=== PATIENT | male | born 1975 | race Caucasian/White ===

== ENCOUNTER → 2017-05-21 22:49 | Outpatient (CLI) | payer OTHER, SELFPAY | PROVIDERS: Family Provider Family Medicine; PCP Family Medicine; Visit Provider Nurse Practitioner Acute Care | DX: G47.33 Obstructive sleep apnea (adult) (pediatric) (principal) | CPT/HCPCS: 95811 ==

== ENCOUNTER → 2018-09-03 10:31 | Outpatient (CLI) | payer OTHER, SELFPAY ==
[2017-07-19 09:23] VITALS: BMI 44.9
--- NOTE | 2018-09-03 10:34 | RAD_ITS ---
STUDY: X-RAY - RIGHT ANKLE REASON FOR EXAM: Male, 43 years old. Ankle pain TECHNIQUE: 3 view(s) of the ankle. COMPARISON: None. FINDINGS: Normal visualized distal tibia and fibula. Normal medial and lateral malleoli. Normal tibiotalar articulation and ankle mortise. Normal visualized talus and calcaneus. The visualized subtalar, talonavicular, calcaneocuboid and tarsal articulations are normal. Bimalleolar soft tissue swelling. RAD/Ankle min 3 Views IMPRESSION: Bimalleolar sprain. No evidence for acute fracture. Electronically Signed: Manpreet Spain MD at 21:14 EDT , Service support ,
== END ==
PROVIDERS: Family Provider Family Medicine; PCP Family Medicine; Referring Provider Chiropractor; Visit Provider Chiropractor
DX: S93.401A Sprain of unspecified ligament of right ankle, initial encounter (principal)
CPT/HCPCS: 73610

== ENCOUNTER → 2018-09-03 12:57 | Outpatient (CLI) | payer OTHER, SELFPAY ==
[2017-07-19 09:23] VITALS: BMI 44.9
[2018-09-03 14:01] LABS: Erythrocyte Sedimentation Rate 2 mm/hr (0-15)
[2018-09-03 14:13] LABS: Vitamin D,25 Hydroxy 17.6 ng/mL (29.95-100.01)
[2018-09-03 14:15] LABS: ALB/GLOB Ratio 1.3 RATIO (0.9-2.4); AST(SGOT) 49 U/L (15-37); Alanine Aminotransfer ALT/SGPT 101 U/L (16-61); Albumin, Serum 4.4 g/dL (3.2-5.0); Alkaline Phosphatase 97 U/L (45-117); Anion Gap 7 (5-15); BUN 10 mg/dL (7-18); Calcium,Total 8.8 mg/dL (8.5-10.1); Chloride 100 mmol/L (98-107); Creatinine, Serum 1.11 mg/dL (0.70-1.30); EST Glomerular Filtration Rate 77 mL/min (>60); Est Glom Filt Rate - Afr Amer 93 mL/min (>60); Globulin 3.3 g/dL (2.2-4.2); Glucose 253 mg/dL (74-106); Magnesium 2.1 mg/dL (1.6-2.6); Potassium 4.4 mmol/L (3.5-5.1); Protein, Total 7.7 g/dL (6.4-8.2); Sodium Level 138 mmol/L (136-145); Thyroid Stim Hormone (TSH) 2.08 uIU/mL (0.358-3.74)
[2018-09-03 14:23] LABS: Mean Corpuscular Volume 78.8 fL (80-94); Mean Platelet Vol. 10.4 fl (6.2-12.0); Platelet Count 197 K/mm3 (150-450); RBC Distribution Width CV 14.1 % (11.6-14.6); RBC Distribution Width SD 39.6 fl (35.1-43.9); Red Blood Count 5.71 M/mm3 (4.6-6.2); White Blood Count 9.9 K/mm3 (4.4-11.0)
[2018-09-03 14:24] LABS: Mean Corp Hgb Conc 35.5 g/gl (32-36)
[2018-09-03 14:25] LABS: Scan Indicated on CBC? Y/N NO
== END ==
PROVIDERS: Family Provider Family Medicine; PCP Family Medicine; Referring Provider Family Medicine; Visit Provider Family Medicine
DX: R25.3 Fasciculation (principal)
CPT/HCPCS: 36415; 80053; 82306; 83735; 84443; 85027; 85652

== ENCOUNTER → 2019-04-14 10:20 | Outpatient (CLI) | payer OTHER, SELFPAY ==
--- NOTE | 2019-04-14 10:25 | MRI_ITS ---
STUDY: MRI RIGHT ANKLE WITHOUT CONTRAST REASON FOR EXAM: Lateral ankle pain, rolled ankle in June. TECHNIQUE: Standardized fat and water weighted pulse sequences were obtained in all 3 orthogonal planes. COMPARISON: Radiographs 09/03/2018. FINDINGS: There is edema in the subcutis adipose space. Normal posterior tibialis tendon. Normal flexor digitorum longus tendon. Normal flexor hallucis longus tendon. There is a longitudinal split of the perimalleolar peroneus brevis tendon (T1 axial images 18-25) and submalleolar peroneus longus tendinosis (T2 axial images 22-25). Normal tibialis anterior tendon. Normal extensor hallucis longus tendon. Normal extensor digitorum longus tendons. Normal Achilles tendon and teno-osseous insertion. Normal plantar fascia. Normal plantar calcaneal tubercles. Normal intrinsic muscles of the rearfoot. Normal distal tibiofibular syndesmotic ligamentous complex. Normal lateral ligamentous complex. Normal subtalar ligaments and sinus tarsi. There is a mild chronic sprain of the deltoid ligament (T2 coronal image 16). Normal plantar calcaneonavicular (spring) ligament. Normal tibiotalar articulation. Normal talar dome. Normal subtalar articulations. Normal talonavicular articulation. Normal calcaneocuboid articulation. Normal navicular-cuneiform articulations. 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 Mild chronic sprain of the deltoid ligament. Electronically Signed: Omer Monreal MD at 13:05 EST Tel , Service support ,
== END ==
PROVIDERS: Family Provider Family Medicine; PCP Family Medicine; Referring Provider Chiropractor; Visit Provider Chiropractor
DX: M65.871 Other synovitis and tenosynovitis, right ankle and foot (principal)
CPT/HCPCS: 73721

== ENCOUNTER 2020-01-04 08:08 | Emergency (ER) | payer OTHER, SELFPAY ==
[2019-04-21 15:58] VITALS: BMI 44.9
[2020-01-04 08:08] VITALS: BP 149/98; PULSE 64; RESP 16; TEMP 36.6; O2SAT 99; BMI 40.0
--- NOTE | 2020-01-04 08:14 | EKG12_ITS ---
Test Reason : REPEAT Blood Pressure : / mmHG Vent. Rate : 057 BPM Atrial Rate : 057 BPM P-R Int : 160 ms QRS Dur : 098 ms QT Int : 414 ms P-R-T Axes : 018 -08 023 degrees QTc Int : 402 ms Sinus bradycardia Inferior infarct , age undetermined Abnormal ECG Confirmed by RIVER VALADEZ, ESTEFANIA ([id number]), assistant production editor WALLY BARTON ([id number]) on 01/07/2020 11:25:37 AM Referred By: JESS Confirmed By:ESTEFANIA HOLMAN MD
--- NOTE | 2020-01-04 08:14 | RAD_ITS ---
STUDY: X-RAY CHEST REASON FOR EXAM: Male, 44 years old. Acute onset of chest tightness. TECHNIQUE: AP upright portable view. COMPARISON: None. FINDINGS: Mild pulmonary hypoinflation. The lungs are clear. There is no demonstrated pleural abnormality. Normal size heart. Normal mediastinum and dao. Normal visualized pulmonary arteries. Normal visualized aortic arch and descending thoracic aorta. Normal visualized thoracic spine. Normal visualized ribs, clavicles, and shoulders. There is no demonstrated abnormality of the visualized soft tissue structures of the upper abdomen. RAD/Chest 1 View (Portable) IMPRESSION: Normal x-ray examination of the chest. Electronically Signed: Alexander Sands MD at 8:51 EDT , Service support ,
[2020-01-04] MEDS: Aspirin 81 MG TAB.CHEW 324 MG PO (08:24)
[2020-01-04 08:39] LABS: Absolute Lymphocyte Count 1.84 X10^3/uL (0.83-4.51); Basophil# 0.03 X10^3/uL; Basophil% 0.3 % (0-1); Eosinophil# 0.12 X10^3/uL; Eosinophils% 1.4 % (0-5); Hematocrit 47.4 % (40-54); Hemoglobin 16.7 g/dL (13.0-16.5); Lymphocyte # 1.84 X10^3/ul (4.0); Lymphocyte % 21.3 % (19-41); Mean Corp Hgb Conc 35.2 g/dL (32-36); Mean Corpuscular Hgb 28.4 pg (27.0-32.0); Mean Corpuscular Volume 80.6 fL (80-94); Mean Platelet Vol. 9.9 fl (6.2-12.0); Monocyte# 0.55 X10^3/uL; Monocyte% 6.4 % (0-10); NRBC Flagged by Analyzer 0 % (0-5); Neutrophil # 5.98 X10^3/uL (2.7-7.7); Neutrophil % 69.2 % (47-70); Platelet Count 154 K/mm3 (150-450); RBC Distribution Width CV 13.5 % (11.6-14.6); RBC Distribution Width SD 38.5 fl (35.1-43.9); Red Blood Count 5.88 M/mm3 (4.6-6.2); White Blood Count 8.6 K/mm3 (4.4-11.0)
--- NOTE | 2020-01-04 08:46 | ED.VIS.GEN ---
History of Present Illness Chief Complaint: Chest Pain Informant: Patient Onset: Today Maximum Severity: Mild Narrative: Complains of bilateral shoulder tingling and right facial tingling chest discomfort occurred today around 7 AM when he woke he went to bed feeling fine. He has no fever cough chest pain is really nonspecific it is more of a tingling sensation to the upper chest, he has no orthopnea PND no fever no signs of coronavirus exposure no symptoms. No abdominal pain, the tingling to the shoulders and the right face is improved without specific therapy. He has no history of [place] PE or DVT he works and can exert himself and never has any type of chest pain or tingling symptoms. His review of systems are entirely unremarkable when I asked him where he is tingling he basically takes his hand and draws it to the right and left upper pectoral areas and to the right side of his cheek the symptoms are not reproducible Past Medical History - Allergies and Home Meds Allergies/Adverse Reactions: Allergies escitalopram [From Lexapro] Adverse Reaction (Mild, Verified 01/04/20 08:10) Other - delayed ejaculatory response Primary Care Physician: Elio Edouard MD [Primary Care Provider] - Past Medical History: - - Includes as above no history of [place] PE or DVT Surgical History: cholecystectomy, tonsillectomy Smoking Status: Unknown if ever smoked - Family History Maternal Family History: Reports: No pertinent history Paternal Family History: Reports: No pertinent history Sibling Family History: Reports: No pertinent history Offspring Family History: Reports: No pertinent history Review of Systems General: Denies: Chills, Fever, Sweats Eyes: Denies: Visual changes - bilaterally, Diplopia ENT: Denies: Rhinorrhea, Sore throat Cardiovascular: Reports: Chest pain, - - Numbness or tingling sensation to the upper chest. Denies: Palpitations Respiratory: Denies: Dyspnea, Cough, Dyspnea on exertion Gastrointestinal: Denies: Abdominal pain, Nausea, Vomiting, Diarrhea, Melena, Hematochezia Genitourinary: Denies: Dysuria, Hematuria, Frequency Musculoskeletal: Denies: Back pain, Extremity Pain Skin: Denies: Rash, Wounds Neurological: Denies: Headache, Weakness, Numbness Physical Exam Vital Signs/Narrative: Vital Signs Temp Pulse Resp BP Pulse Ox 01/04/20 08:08 97.8 F 64 16 149/98 H 99 General: Well nourished, Well developed, No Acute Distress Head: Normocephalic, Atraumatic Eyes: Perrl, EOMI ENT: Moist mucous membranes, No rhinorrhea Neck: Supple, Nontender Cardiovascular: Regular rate, Regular rhythm, No murmurs Respiratory: No distress, CTA bilaterally, Chest nontender Abdomen: Soft, Nontender, Nondistended, Normal bowel sounds Back: Nontender, Normal Inspection Extremities: Nontender, No edema Skin: Normal color, No rash Neurological: Alert, Oriented x3, Cranial nerves II-XII grossly intact, Normal Strength, Normal Sensation Psychological: Normal affect, Normal Mood Diagnostic/Tx/Re-eval - Medical Decision Making The patient is a large gentleman his physical exam is unremarkable his vital signs are normal the chest head neck neurologic exam extremity exam unremarkable the exact etiology of this numbness and tingling sensation is unclear it does not involve his hands rather the shoulders upper chest and the right cheek he has full range of motion of the head his HEENT exam is unremarkable his carotid pulses are normal his extremity pulses and sensation vascular exam unremarkable backs unremarkable His EKG shows a sinus rhythm rate 60 no acute injury given all the above ED screening evaluation Patient's ED screening evaluations labs and chest x-ray reports are all generally unremarkable see those reports, In reevaluation is resting comfortably asymptomatic discussed the differential to include life-threatening etiologies he understands discussed inpatient versus outpatient management he does not wish to be admitted preferring outpatient management and wanted to be discharged home, he did agree to stay in the emergency department for repeat troponin EKG, these additional studies were unremarkable, during his period of observation in the ED he remained asymptomatic He understands the need to follow-up with his outpatient providers understands the potential for life-threatening etiology of the above he will take 2 baby aspirin a day and return for change in symptoms Home stable declined admission Impression final chest discomfort and upper body numbness resolved etiology unclear ED Disposition - Plan for ED Patient: Diagnosis: Chest pain Instructions: ED Chest Pain Atypical Unkn Cause Referrals: Elio Edouard MD [Primary Care Provider] - Additional Instructions: No exertional activity, take 2 baby aspirin a day until you follow-up, you must see your outpatient providers for further management return for any change in symptoms
[2020-01-04 08:53] LABS: Anion Gap 2 (5-15); BUN 10 mg/dL (7-18); BUN/Creat Ratio 11.2 RATIO (10-20); Calcium,Total 8.9 mg/dL (8.5-10.1); Chloride 106 mmol/L (98-107); Creatinine, Serum 0.89 mg/dL (0.70-1.30); EST Glomerular Filtration Rate 98 mL/min (>60); Est Glom Filt Rate - Afr Amer 119 mL/min (>60); Estimated Creatinine Clearance 116.25 ml/min; Glucose 265 mg/dL (74-106); Potassium 4.1 mmol/L (3.5-5.1); Sodium Level 139 mmol/L (136-145)
[2020-01-04 09:08] VITALS: BP 138/79; PULSE 68; RESP 16; O2SAT 100
--- NOTE | 2020-01-04 09:18 | EKG12_ITS ---
Test Reason : CP Blood Pressure : / mmHG Vent. Rate : 061 BPM Atrial Rate : 061 BPM P-R Int : 154 ms QRS Dur : 094 ms QT Int : 398 ms P-R-T Axes : 013 -06 021 degrees QTc Int : 400 ms Normal sinus rhythm Inferior infarct , age undetermined Abnormal ECG Confirmed by RIVER VALADEZ, ESTEFANIA ([id number]), subeditor WALLY BARTON ([id number]) on 01/07/2020 11:25:22 AM Referred By: Confirmed By:ESTEFANIA HOLMAN MD
[2020-01-04 10:30] VITALS: BP 137/74; PULSE 70; RESP 16
== END 2020-01-04 10:31 | disposition home or self-care (01) ==
PROVIDERS: Emergency Provider Emergency Medicine; PCP Family Medicine
DX: R07.9 Chest pain, unspecified (principal); R20.0 Anesthesia of skin; Z90.49 Acquired absence of other specified parts of digestive tract
CPT/HCPCS: 71045; 80048; 84484; 85025; 93005; 96374; 96375; 99285; A4216

== ENCOUNTER → 2022-11-20 | Outpatient (CLI) | payer OTHER, SELFPAY ==
[2022-11-20 18:22] LABS: Anion Gap 5 (5-15); BUN 12 mg/dL (7-18); BUN/Creat Ratio 12.2 RATIO (10-20); Calcium,Total 8.9 mg/dL (8.5-10.1); Chloride 102 mmol/L (98-107); Creatinine, Serum 0.98 mg/dL (0.70-1.30); EST Glomerular Filtration Rate 87 mL/min (>60); Est Glom Filt Rate - Afr Amer 105 mL/min (>60); Glucose 345 mg/dL (74-106); Potassium 3.9 mmol/L (3.5-5.1); Sodium Level 136 mmol/L (136-145)
== END | disposition home or self-care (01) ==
PROVIDERS: PCP Family Medicine; Visit Provider Nurse Practitioner Family
DX: I10 Essential (primary) hypertension (principal)
CPT/HCPCS: 36415; 80048

== ENCOUNTER → 2023-01-17 | Outpatient (CLI) | payer OTHER, SELFPAY ==
[2023-01-17 13:03] LABS: Hemoglobin A1c 9.2 % (3.8-5.6)
[2023-01-17 13:04] LABS: Anion Gap 5 (5-15); BUN 21 mg/dL (7-18); BUN/Creat Ratio 22.3 RATIO (10-20); Calcium,Total 9.5 mg/dL (8.5-10.1); Chloride 104 mmol/L (98-107); Cholesterol 157 mg/dL (200); Creatinine, Serum 0.94 mg/dL (0.70-1.30); EST Glomerular Filtration Rate 91 mL/min (>60); Est Glom Filt Rate - Afr Amer 110 mL/min (>60); Glucose 308 mg/dL (74-106); High Density Lipoprotein 37 mg/dL; Potassium 5.1 mmol/L (3.5-5.1); Sodium Level 134 mmol/L (136-145); Triglycerides 111 mg/dL; Very Low Density Lipoprotein 22 mg/dL (5-40)
[2023-01-17 13:25] LABS: Microalbumin,Random Urine 31.1 mg/L (NO RANGE EST.); Microalbumin:Creatinine Ratio 45.3 mg/g CRE (<30 mg/g CRE)
== END | disposition home or self-care (01) ==
LOC: MFPLAB 09:52
PROVIDERS: PCP Family Medicine; Visit Provider Family Medicine
DX: E11.69 Type 2 diabetes mellitus with other specified complication (principal); E66.01 Morbid (severe) obesity due to excess calories
CPT/HCPCS: 36415; 80048; 80061; 82043; 82570; 83036

== ENCOUNTER → 2023-03-16 | Outpatient (CLI) | payer OTHER, SELFPAY ==
[2023-03-16 10:29] LABS: Anion Gap 3 (5-15); BUN 24 mg/dL (7-18); BUN/Creat Ratio 26.1 RATIO (10-20); Calcium,Total 8.7 mg/dL (8.5-10.1); Chloride 104 mmol/L (98-107); Creatinine, Serum 0.92 mg/dL (0.70-1.30); EST Glomerular Filtration Rate 94 mL/min (>60); Est Glom Filt Rate - Afr Amer 113 mL/min (>60); Glucose 231 mg/dL (74-106); PSA,Total - Annual Screen 1.02 ng/mL (0.00-4.00); Potassium 4.2 mmol/L (3.5-5.1); Sodium Level 134 mmol/L (136-145)
== END | disposition home or self-care (01) ==
LOC: MFPLAB 08:25
PROVIDERS: PCP Family Medicine; Visit Provider Family Medicine
DX: Z00.00 Encounter for general adult medical examination without abnormal findings (principal); E11.69 Type 2 diabetes mellitus with other specified complication
CPT/HCPCS: 36415; 80048; 84153; G0103

== ENCOUNTER → 2024-06-05 | Outpatient (CLI) | payer OTHER, SELFPAY ==
[2024-06-05 11:13] LABS: ALB/GLOB Ratio 1.1 RATIO (0.9-2.4); AST(SGOT) 31 U/L (15-37); Alanine Aminotransfer ALT/SGPT 47 U/L (16-61); Albumin, Serum 3.9 g/dL (3.2-5.0); Alkaline Phosphatase 70 U/L (45-117); Anion Gap 8 (5-15); BUN 19 mg/dL (7-18); BUN/Creat Ratio 20.3 RATIO (10-20); Chloride 104 mmol/L (98-107); Cholesterol 151 mg/dL (200); Creatinine, Serum 0.93 mg/dL (0.70-1.30); EST Glomerular Filtration Rate 91 mL/min (>60); Est Glom Filt Rate - Afr Amer 111 mL/min (>60); Globulin 3.5 g/dL (2.2-4.2); Glucose 193 mg/dL (74-106); High Density Lipoprotein 33 mg/dL; Protein, Total 7.4 g/dL (6.4-8.2); Sodium Level 136 mmol/L (136-145); Triglycerides 118 mg/dL; Very Low Density Lipoprotein 24 mg/dL (5-40)
[2024-06-05 11:22] LABS: Protein, Urine (Random) 11.7 mg/dL (<11.9); Protein:Creat Ratio 52 mg/g CRE (0-200)
[2024-06-05 14:26] LABS: Hemoglobin A1c 7.5 % (3.8-5.6)
== END | disposition home or self-care (01) ==
LOC: MTLAB 08:41
PROVIDERS: PCP Family Medicine; Referring Provider Family Medicine; Visit Provider Family Medicine
DX: E11.69 Type 2 diabetes mellitus with other specified complication (principal)
CPT/HCPCS: 36415; 80053; 80061; 82570; 83036; 84156

== ENCOUNTER 2024-07-01 20:13 | Emergency (ER) | payer OTHER, SELFPAY ==
[2024-07-01 20:14] VITALS: BP 154/97; PULSE 90; RESP 18; TEMP 36.9; O2SAT 100; BMI 43.2
--- NOTE | 2024-07-01 21:28 | EX.ED.DYSGE1 ---
HPI <Rhina Zavala RN - Last Filed: 07/01/24 22:06> History of Present Illness Chief Complaint: Wound Check Detail of Chief Complaint: Shingles to forehead, concerned of progression to eyes Informant: patient Onset/Context/Timing Onset: Days (5) Timing: Continuous Quality: Aching Location: Right forehead Current Severity: 2/10 Maximum Severity: 3/10 Worsened by: Leaning forward Relieved by: Tylenol Associated Symptoms Associated Symptoms: Edema to mid forehead radiating down to bridge of nose and medial eyes Narrative Narrative: Patient is a 49-year-old male with past medical history significant for hyperglycemia, obesity, and TRICIA who presents to the ED for concern of shingles radiating to bilateral eyes. Patient reports burning and itching beginning 06/23/2024. Patient then traveled to [place] on 06/25/2024 in the evening. Developed rash to right forehead on 06/27/2024. Seen at urgent care in [place] at that time and diagnosed with shingles. Placed on Valtrex. Yesterday started to develop edema to the mid forehead with scabbing noted. Today edema and scabs have worsened. Patient reports aching to site. Edema has radiated down to eyebrows and bridge of nose. Redness noted to forehead. Patient reports being out in the sun and getting sunburn while in [place]. Patient does report generalized aching in the evenings. Denies fevers, lightheadedness, dizziness. Denies nausea vomiting diarrhea. Prior similar symptoms: No Recent Illness/Hospitalization: No PFSH <Rhina Zavala RN - Last Filed: 07/01/24 22:06> [facility] Medical History Ankle arthropathy Diarrhea TRICIA (obstructive sleep apnea) Pedal edema Daytime somnolence Cellulitis Hyperglycemia Left leg cellulitis Severe sepsis history of cellulitis Morbid obesity Home Medications ?Medication ?Instructions ?Recorded ?Last Taken ?Type glimepiride 1 mg tablet 1 mg PO QDAY 09/23/23 Unknown History lisinopril 10 mg tablet 10 mg PO QDAY 09/23/23 Unknown History metformin 500 mg tablet,extended 1,000 mg PO QDAY 09/23/23 Unknown History release 24 hr methylphenidate HCl 18 mg 18 mg PO QDAY 09/23/23 Unknown History tablet,extended release 24 hr semaglutide 3 mg tablet (Rybelsus) 3 mg PO QAM 09/23/23 Unknown History cephalexin 500 mg capsule 500 mg PO Q6 #30 CAPSULES 07/01/24 Unknown Rx sildenafil 50 mg tablet 50 mg PO QDAY 07/01/24 Unknown History Allergy/AdvReac Type Severity Reaction Status Date / Time escitalopram (From Lexapro) AdvReac Mild Other - Verified 07/01/24 20:14 delayed ejaculatory response Family History Grandfather Colon cancer Surgical History H/O vasectomy History of cholecystectomy History of tonsillectomy Social History household members: spouse housing: house Smoking Status: Never smoker alcohol intake: never substance use type: does not use ROS <Rhina Zavala RN - Last Filed: 07/01/24 22:06> ROS ED ROS Narrative Patient denies headache, fever, chills. Denies fatigue. Denies weight loss. Constitutional Constitutional ED: Denies chills, fever(s) or weight loss Eyes Eyes: Denies blurry vision or change in vision ENT ENT ED: Denies ear pain, rhinorrhea or sore throat Cardiovascular Cardiovascular: Denies chest pain or palpitations Respiratory/Chest Respiratory/Chest: Denies cough or dyspnea Gastrointestinal Gastrointestinal: Denies abdominal pain, diarrhea, nausea or vomiting Genitourinary Genitourinary ED: Denies dysuria, hematuria or urinary frequency Musculoskeletal Musculoskeletal: Reports other Details: Generalized aching at night. Integumentary Reports rash and other Details: Scabs to right forehead. Neurologic Neurologic: Denies headache(s), paresthesias or weakness Psychiatric Psychiatric: Denies anxiety or depression EXAM <Rhina Zavala RN - Last Filed: 07/01/24 22:06> Physical Exam Narrative Exam Narrative: Patient is awake, alert, sitting upright on ED cot. No acute distress. Patient is cooperative and good historian. Const Vital Signs: 07/01/24 20:14 07/01/24 21:58 Temperature 98.4 F 98.4 F Temperature Source Oral Pulse Rate 90 90 Respiratory Rate 18 18 Blood Pressure 154/97 H 154/97 H Blood Pressure Mean 116 116 Pulse Ox 100 100 Oxygen Delivery Method Room Air Positive well nourished, well developed and obese General Appearance ED: well developed Nutritional Appearance: obese HEENT Reports moist mucous membranes HEENT Narrative: Tenderness noted to forehead. Large amount of edema noted to mid forehead radiating to bilateral eyebrows and bridge of nose. tenderness; Negative for trauma Eyes PERRL and EOMs intact bilaterally Neck no lymphadenopathy, supple and no JVD Chest Wall inspection of chest normal and palpation of chest normal Resp normal respiratory effort and clear to auscultation bilaterally Auscultation: Negative for rales, rhonchi or wheezes Cardio regular rate, regular rhythm, S1 normal heart sound and S2 normal heart sound GI normal to inspection, nondistended, normoactive bowel sounds Palpation: soft Extremity normal to inspection General Extremety ED: Negative for edema or tenderness General Extremity: Negative for edema Neuro oriented x3, CN's II-XII intact bilaterally and no sensory deficits noted Sensorium / Orientation: alert Motor Exam: strength 5/5 throughout Psych mental status grossly normal Skin Skin Narrative: Approximately 2.5 cm area on right forehead with black scabs. Forehead with erythema. Patient also reports recent sunburn. Rash also noted to bilateral hands. Patient reports due to sunburn. Denies itching at site. <Dr. Rickey Lovelace MD - Last Filed: 07/01/24 22:16> Physical Exam Const Vital Signs: 07/01/24 20:14 07/01/24 21:58 Temperature 98.4 F 98.4 F Temperature Source Oral Pulse Rate 90 90 Respiratory Rate 18 18 Blood Pressure 154/97 H 154/97 H Blood Pressure Mean 116 116 Pulse Ox 100 100 Oxygen Delivery Method Room Air MDM <Rhina Zavala RN - Last Filed: 07/01/24 22:06> [facility] MDM Narrative Medical decision making narrative: No imaging or lab work required at this time. Patient is afebrile. Wound with no drainage for culture. History & Record Review Discussion w/independent historian: Patient and Family Differential Diagnosis Differential Diagnosis: Shingles Differential Diagnosis: Cellulitis Management Discussion w/another healthcare provider: Other (Dr. Lovelace, ED provider) Treatment and Re-Evaluation :: Upon examination, this does not appear to be shingles. However there is concern for cellulitis. Patient will be prescribed Keflex 500 mg 4 times a day quantity 30. Patient advised to complete full course of antibiotics. Patient may use ice to site as needed for swelling. He may also use Tylenol and ibuprofen for pain. He will follow-up with Dr. Holcomb. <Dr. Rickey Lovelace MD - Last Filed: 07/01/24 22:16> [facility] Narrative Medical decision making narrative: No imaging or lab work required at this time. Patient is afebrile. I have personally performed a face to face assessment of the patient and have reviewed the ANNABELLE Note. I performed a substantive portion of the visit including all aspects of the following. My guerra findings include: History is 49-year-old diabetic male recently was in [place]. Initially thought he might of had a bug bite on his forehead. The blisters broke and now its mildly red and swollen. He said initially it itched. It is really not painful. He went to an urgent care in [place] thought it was shingles and started him on antivirals. He came in tonight because the swelling was worse and it is now involving his upper nose and lower forehead. He denies any pain. No fever. He has a history of cellulitis on his legs. Exam is [middle-age male no acute distress vital signs stable afebrile. H EENT exam pupils round react light. His forehead he has an area of a rash that opened up. It look like it was previously vesicular according to a picture his had on their phone. This is not shingles. It could be a local allergic reaction such as an insect bite. It could be early cellulitis. There is no pus it does not need drainage. Pupils are round reactive light. Extra motions are intact. He has no preauricular lymphadenopathy. There is no orbital or periorbital cellulitis. Neck nontender no lymphadenopathy. Lungs clear. Heart regular rhythm rate about 90. No murmur. Chest wall nontender. Abdomen nontender. Moving all 4 extremities. Otherwise there is no significant rashes anywhere else. He has normal strength and range of motion both upper and lower extremities. He is awake and alert.] Medical Decision Making [patient with a rash on his forehead most likely was an insect bite. It did open could have an early cellulitis. This is not shingles. He will be told to stop the antiviral. He be placed on Keflex. Also to treat this as a possible local allergic reaction with Benadryl, ice and Motrin. Follow-up with not improving or return if worse.] Other additions or changes: [None] Discharge Plan Triage Chief Complaint: Wound Check ED Provider: Rickey Lovelace Dx/Rx/DC Orders Clinical Impression: Facial rash, History of diabetes mellitus, Rash, Cellulitis, Diabetes Instructions: Nonspecific Skin Rash, ED Cellulitis, Type 2 Diabetes Prescriptions: New cephalexin 500 mg capsule 500 mg PO Q6 Qty: 30 0RF No Action glimepiride 1 mg tablet 1 mg PO QDAY metformin 500 mg tablet extended release 24 hr 1,000 mg PO QDAY lisinopril 10 mg tablet 10 mg PO QDAY methylphenidate HCl 18 mg tablet extended release 24hr 18 mg PO QDAY Rybelsus 3 mg tablet 3 mg PO QAM sildenafil 50 mg tablet 50 mg PO QDAY Primary Care Provider: Carlitos Holcomb Referrals: Carlitos Holcomb MD [Primary Care Provider] - 1 Week if not improving Activity Restrictions/Additional Instructions: Rash may have originally been a bug bite. It could be an early infection. For that reason we will put you on Keflex 4 times a day. This is not shingles you can stop the antiviral medication. Ice to your forehead to decrease swelling. Benadryl for itching. Motrin for any discomfort and inflammation. This should progressively improve if not follow-up with your doctor return. Print Language: Thai Disposition Disposition: Home, Self Care Discharge Date/Time: 07/01/24 22:13
[2024-07-01] MEDS: Cephalexin 250 MG Capsule 500 MG PO (21:56)
[2024-07-01 21:58] VITALS: BP 154/97; PULSE 90; RESP 18; TEMP 36.9; O2SAT 100
== END 2024-07-01 22:13 | disposition home or self-care (01) ==
PROVIDERS: Emergency Provider Emergency Medicine; PCP Family Medicine; Visit Provider Emergency Medicine
DX: R21 Rash and other nonspecific skin eruption (principal); E11.9 Type 2 diabetes mellitus without complications; E66.9 Obesity, unspecified; G47.33 Obstructive sleep apnea (adult) (pediatric); L03.90 Cellulitis, unspecified; Z90.49 Acquired absence of other specified parts of digestive tract; Z98.52 Vasectomy status
CPT/HCPCS: 99283

== ENCOUNTER 2024-08-12 06:24 | Day surgery (SDC) | payer OTHER, SELFPAY ==
--- NOTE | 2024-08-06 11:23 | PAT.ANE_ITS ---
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 When Was Last Pacemaker Check QUESTION #4 FULL TEXT: You/Your Family Experience fever (hyperthermia) with Anesthesia Last Oral Intake Last Oral intake: Last Oral Intake NPO since Meds taken in AM with sips of water? Meds patient instructed to take am of surgery PONV PONV - real estate development manager: PONV - real estate development manager Female No 08/06/24 10:51 HX of Motion Sickness No 08/06/24 10:51 HX of N/V After Surgery No 08/06/24 10:51 Non-Smoker Yes 08/06/24 10:51 Duration of Surgery greater No 08/06/24 10:51 than 60 minutes Number of Risk Factors 1 08/06/24 10:51 PONV Score Low Risk 08/06/24 10:51 Height & Weight Height & Weight: Anesthesia: Height & Weight Height 5 ft 10 in 07/01/24 13:18 Respiratory Assessment Respiratory Assessment - real estate development manager: Respiratory Tract Infection Hx - real estate development manager Hx Respiratory Tract Infection No 08/06/24 10:51 STOP Sleep Apnea STOP Sleep Apnea - real estate development manager: STOP Sleep Apnea - real estate development manager Hx Hypertension No 08/06/24 10:51 Hx Sleep Apnea No 08/06/24 10:51 CPAP BIPAP Do you snore loudly (louder No 08/06/24 10:51 than talking or can be heard Do you often feel tired/ No 08/06/24 10:51 fatigued/ sleepy during daytime? Has anyone observed you stop No 08/06/24 10:51 breathing during sleep? STOP Results Negative 08/06/24 10:51 QUESTION #5 FULL TEXT : Do you snore loudly (louder than talking or can be heard through closed doors)? Tobacco Use History Tobacco Use History - real estate development manager: Tobacco Use History - real estate development manager Tobacco Use Non-smoker 11/20/22 16:40 Smoking Status Never smoker 08/06/24 10:51 Hx Tobacco Use No 08/06/24 10:51 Years Smoking Packs Smoked per Day Smoking Cessation Date was within the last 15 years Hx Smoking Cessation Date Hx Smoking Cessation Counseling Hematologic Medial History Hematologic Hx - real estate development manager: Hematologic Medical Hx - nursery supervisor Hx of Blood Transfusion No 08/06/24 10:51 Hx of Transfusion in last 3 No 08/06/24 10:51 Months Date of Last Transfusion (if within last 3 months) Ever experience any problems No 08/06/24 10:51 with transfusion(s)? Specify any problems Hx of Preganancy in last 3 N/A 08/06/24 10:51 Months Nurse Filling Out Transfusion VCHRISTIN 08/06/24 10:51 & Questions: Date: 08/06/24 08/06/24 10:51 Time: 10:53 08/06/24 10:51 Patient unable to answer at this time (ie. confused, unrespo /Reproduction History /Reproductive History - real estate development manager: /Reproductive Hx- real estate development manager Hx Now Gestational Age (in weeks): EDC: Hx Hx Para Hx Section [facility] Medical History (Updated 08/06/24 @ 10:51 by Alm aRosa Marie) Wears glasses History of Clostridium difficile infection Depression Anxiety Injury of head and neck Non-smoker Sleep apnea History of edema History of echocardiogram Hypertension Ankle arthropathy Diarrhea TRICIA (obstructive sleep apnea) Pedal edema Daytime somnolence Cellulitis Hyperglycemia Left leg cellulitis Severe sepsis history of cellulitis Morbid obesity Home Medications ?Medication ?Instructions ?Recorded ?Last Taken ?Type glimepiride 1 mg tablet 1 mg PO QDAY 09/23/23 Unknow n History lisinopril 10 mg tablet 10 mg PO QDAY 09/23/23 Unkno wn History metformin 500 mg tablet,extended 1,000 mg PO QDAY 06/16 Unknown History release 24 hr semaglutide 3 mg tablet (Rybelsus) 3 mg PO QAM 4 Unknown History dextroamphetamine-amphetamine 20 1 tab PO DAILY Unknown History mg tablet Allergy/AdvReac Type Severity Reaction Status Date / Time escitalopram (From Lexapro) AdvReac Mild Other - Verified 08/06/24 10:41 delayed ejaculatory response Family History Grandfather Colon cancer Surgical History H/O vasectomy History of cholecystectomy History of tonsillectomy Social History household members: spouse housing: house Smoking Status: Never smoker alcohol intake: never substance use type: does not use Audit: Pertinent Findings Pertinent Findings EKG Perinent findings: 01/04/2020. Normal sinus rhythm 61 bpm. Inferior infarct, age undetermined. Recommendation Anesthesia Recommendation Anesthesia recommendation: OPTIMIZED for anesthesia
[2024-08-12] VITALS (8 sets, daily range): BP systolic 107–143; BP diastolic 65–83; PULSE 67–78; RESP 14–18; TEMP 36.1–36.6; O2SAT 96–99; BMI 43.4
--- NOTE | 2024-08-12 06:46 | HP.PCM_ITS ---
History and Physical Date of Admission: 08/12/24 Intake Vital Signs 09/23/2407:35 07/01/2512:18 Height 5 ft 10 in 5 ft 10 in Weight: 295 lb 8 oz 299 lb BMI 42.4 42.9 BP 142/82 H 133/84 H Blood Pressure Location Lt brachial Rt brachial Position Sitting Sitting Respiration 16 18 Pulse 84 85 Pulse Source NIBP Monitor Temp 98.4 F 97.5 F L Temp Source Temporal Temporal Pulse Oximetry (%) 97 100 Oxygen Delivery Method room air room air Intake Visit Reasons: COLONOSCOPY Chief Complaint: colonocopy Is patient in pain?: No Allergies escitalopram (From [employer]) Adverse Reaction (Mild, Verified 09/23/23 08:36) Other - delayed ejaculatory response Medications ?Medication ?Instructions ?Recorded ?Confirmed ?Type glimepiride 1 mg tablet 1 mg PO QDAY 09/23/23 07/01/24 History lisinopril 10 mg tablet 10 mg PO QDAY 09/23/23 07/01/24 History metformin 500 mg tablet,extended 1,000 mg PO QDAY 09/23/23 07/01/24 Histo ry release 24 hr methylphenidate HCl 18 mg 18 mg PO QDAY 09/23/23 07/01/24 History tablet,extended release 24 hr semaglutide 3 mg tablet (Rybelsus) 3 mg PO QAM 09/23/23 07/01/24 History sildenafil 50 mg tablet 50 mg PO QDAY 07/01/24 07/01/24 History PFSH Medical History (Updated 07/01/24 @ 13:[address] Junior Worrell MD) Ankle arthropathy Diarrhea TRICIA (obstructive sleep apnea) Pedal edema Daytime somnolence Cellulitis Hyperglycemia Left leg cellulitis Severe sepsis history of cellulitis Morbid obesity Surgical History H/O vasectomy History of cholecystectomy History of tonsillectomy Family History (Updated 07/01/24 @ 13:18 by Judy Brooks LPN) Grandfather Colon cancer Social History (Updated 07/01/24 @ 13:18 by Judy Brooks LPN) Smoking Status: Never smoker alcohol intake: never substance use type: does not use HPI HPI HPI: Patient is a 49-year-old male here for colonoscopy. He has never had a colonoscopy in the past. He reports family history of colon cancer in a grandfather. He has intermittent diarrhea about twice a week. He denies abdominal pain or blood in the stool. ROS General General: No weight change, appetite, fatigue, colon cancer, breast cancer or weakness HEENT HEENT: No difficulty swallowing, eye injury, eye surgery, swollen glands or hoarseness Endo Endocrine: Yes diabetes mellitus; No thyroid disease, thyroid cancer, Hair loss, heat intolerance or cold intolerance Skin Skin: No rash or changing moles Musc Musculoskeletal: No back problems, arthritis, rheumatoid arthritis, gout or joint pain Cardio Cardiovascular: Yes high blood pressure; No murmur, pacemaker, heart disease, atrial fibrillation, heart attack, heart stent, palpitations, shortness of breath with exertion or chest pain Psych Psychiatric: Yes depression and anxiety; No hearing voices Resp Respiratory: No shortness of breath, Yes sleep apnea, No cough, No COPD, No asthma, No emphysema and No wheezing Gastro Gastrointestinal: No abdominal pain, No nausea or vomiting, Yes diarrhea, No constipation, No blood in stool, Yes acid reflux, No hemorrhoids, No ulcers, No gallbladder problem and No black,tarry stools Abhilash Hematologic: No blood thinners, No blood disorders, No bleeding, No anemia and No blood clots Neuro Neurologic: No numbness, No tingling and No weakness Exam Const General: cooperative Orientation: alert and oriented x3 HENMT Head: normal to inspection Neck Neck: normal visual inspection and full ROM Chest Chest palpation & inspection: normal inspection of the chest Resp Effort & Inspection: normal respiratory effort Auscultation: clear to auscultation bilaterally Cardio Rate: regular rate Rhythm: regular rhythm GI Inspection: non-distended Palpation: soft and nontender Skin General: no rashes or lesions noted Neuro General: patient alert and patient oriented x3 Extrem General: full ROM Psych Appearance: grossly normal Mental Status: mental status grossly normal Assessment and Plan Assessment and Plan (1) Screen for colon cancer: Status: Acute Plan: I explained endoscopy in detail to the patient. I explained the risks including but not limited to stroke or heart attack with anesthesia, perforation of the GI tract, bleeding, infection. I explained that any of these could necessitate further emergency surgery. The patient understands and all questions were answered sufficiently. The patient wishes to proceed with procedure. Junior Worrell MD Pager: [facility] [address] [place] [address], [address] [place] [address] Office: I have examined the patient and the H&P has been reviewed. There are no clinical changes since date of exam.
--- NOTE | 2024-08-12 07:27 | PRE.ANES_ITS ---
ASA Classification* ASA Classification ASA Classification: 3 Assessment & Plan Anesthesia* Anesthesia Assessment Anesthesia Assessment: Discussed sedation and/or anesthesia options, risks, benefits, and alternatives with patient/parents/legal guardian/POA. Questions invited. The patient/parents/legal guardian/POA seems to understand and agrees to proceed with anesthesia plan. Reviewed the physical assessment, medical history, allergy history and patient home medications list prior to surgery/procedure/anesthetic and documented any changes. Performed airway and anesthesia risk assessments. Anesthesia Type Anesthesia Type: MAC History Source History Obtained from:: Patient and Chart Anesthesia Focused Assessment* Temperature: 97.8 F Pulse Rate: 67 Blood Pressure: 143/83 Respiratory Rate: 18 Pulse Ox: 99 Oxygen Delivery Method: Room Air Airway Assessment Mouth opens: >3 cm Mallampati Score: IV Teeth Condition: Caps/Crowns (Patient has crowns on #8 and 9. They are tight.) Neck Range of motion (ROM): Limited ROM (Slght decrease in extension) Focused Labs Anesthesia Preop lab: CBC WBC 8.6 K/mm3 (4.4-11.0) 01/04/20 08:25 01/04/20 RBC 5.88 M/mm3 (4.6-6.2) 01/04/20 08:25 01/04/20 Hgb 16.7 g/dL (13.0-16.5) H 01/04/20 08:25 0 Hct 47.4 % (40-54) 01/04/20 08:25 01/04/20 Plt Count 154 K/mm3 (150-450) 01/04/20 08:25 01/04/20 CHEMISTRY Potassium 4.0 mmol/L (3.5-5.1) 06/05/24 08:43 06/05/24 Sodium 136 mmol/L (136-145) 06/05/24 08:43 06/05/24 Magnesium 2.1 mg/dL (1.6-2.6) 09/03/18 13:00 09/03/18 BUN 19 mg/dL (7-18) H 06/05/24 08:43 06/05/24 Creatinine 0.93 mg/dL (0.70-1.30) 06/05/24 08:43 06/05/24 Glucose 193 mg/dL (74-106) H 06/05/24 08:43 06/05/24 POC Glucose 185 mg/dL (70-110) H 03/14/17 11:22 03/14/17 TSH 2.08 uIU/mL (0.358-3.74) 09/03/18 13:00 COAG Pre-Assessment Diagnosis/Proposed Procedure Planned Operative Procedure(s): COLONOSCOPY Anesthesia History Anesthesia History - certified health education specialist: Anesthesia History - certified health education specialist Hx Hospitalization No 08/06/24 10:51 Any Problems With Anesthesia Yes: SWEARS A LOT UPON 08/06/24 10:51 COMING OUT OF ANESTHESIA Cholinesterase deficiency No 08/06/24 10:51 You/Your Family Experience No 08/06/24 10:51 fever (hyperthermia) with Relationship Recent Exposure to Contagious No 08/12/24 06:48 Disease Does patient have nerve No 08/06/24 10:51 stimulator Patient instructed to have device shut off --Does patient have Pacemaker No 08/12/24 06:48 or ICD? When Was Last Pacemaker Check QUESTION #4 FULL TEXT: You/Your Family Experience fever (hyperthermia) with Anesthesia Last Oral Intake Last Oral intake: Last Oral Intake NPO since 23:00 08/12/24 06:48 Meds taken in AM with sips of No 08/12/24 06:48 water? Meds patient instructed to take am of surgery PONV PONV - certified health education specialist: PONV - certified health education specialist Female No 08/06/24 10:51 HX of Motion Sickness No 08/06/24 10:51 HX of N/V After Surgery No 08/06/24 10:51 Non-Smoker Yes 08/06/24 10:51 Duration of Surgery greater No 08/06/24 10:51 than 60 minutes Number of Risk Factors 1 08/06/24 10:51 PONV Score Low Risk 08/06/24 10:51 Height & Weight Height & Weight: Anesthesia: Height & Weight Height 5 ft 10 in 08/12/24 06:48 Weight: 137.2 kg 08/12/24 06:48 Body Mass Index (BMI) 43.4 08/12/24 06:48 Respiratory Assessment Respiratory Assessment - certified health education specialist: Respiratory Tract Infection Hx - certified health education specialist Hx Respiratory Tract Infection No 08/06/24 10:51 STOP Sleep Apnea STOP Sleep Apnea - certified health education specialist: STOP Sleep Apnea - certified health education specialist Hx Hypertension No 08/06/24 10:51 Hx Sleep Apnea No 08/06/24 10:51 CPAP BIPAP Do you snore loudly (louder No 08/06/24 10:51 than talking or can be heard Do you often feel tired/ No 08/06/24 10:51 fatigued/ sleepy during daytime? Has anyone observed you stop No 08/06/24 10:51 breathing during sleep? STOP Results Negative 08/06/24 10:51 QUESTION #5 FULL TEXT : Do you snore loudly (louder than talking or can be heard through closed doors)? Tobacco Use History Tobacco Use History - certified health education specialist: Tobacco Use History - certified health education specialist Tobacco Use Non-smoker 11/20/22 16:40 Smoking Status Never smoker 08/06/24 10:51 Hx Tobacco Use No 08/06/24 10:51 Years Smoking Packs Smoked per Day Smoking Cessation Date was within the last 15 years Hx Smoking Cessation Date Hx Smoking Cessation Counseling Hematologic Medial History Hematologic Hx - certified health education specialist: Hematologic Medical Hx - manager performance improvement Hx of Blood Transfusion No 08/06/24 10:51 Hx of Transfusion in last 3 No 08/06/24 10:51 Months Date of Last Transfusion (if within last 3 months) Ever experience any problems No 08/06/24 10:51 with transfusion(s)? Specify any problems Hx of Preganancy in last 3 N/A 08/06/24 10:51 Months Nurse Filling Out Transfusion VCHRISTIN 08/06/24 10:51 & Questions: Date: 08/06/24 08/06/24 10:51 Time: 10:53 08/06/24 10:51 Patient unable to answer at this time (ie. confused, unrespo /Reproduction History /Reproductive History - certified health education specialist: /Reproductive Hx- certified health education specialist Hx Now Gestational Age (in weeks): EDC: Hx Hx Para Hx Section SAB PFSH Medical History Wears glasses History of Clostridium difficile infection Depression Anxiety Injury of head and neck Non-smoker Sleep apnea History of edema History of echocardiogram Hypertension Ankle arthropathy Diarrhea TRICIA (obstructive sleep apnea) Pedal edema Daytime somnolence Cellulitis Hyperglycemia Left leg cellulitis Severe sepsis history of cellulitis Morbid obesity Home Medications ?Medication ?Instructions ?Recorded ?Last Taken ?Type glimepiride 1 mg tablet 1 mg PO QDAY 09/23/23 History lisinopril 10 mg tablet 10 mg PO QDAY 09/23/2308/11 History metformin 500 mg tablet,extended 1,000 mg PO QDAY 06/1608/11/24 History release 24 hr semaglutide 3 mg tablet (Rybelsus) 3 mg PO QAM 4 Unknown History dextroamphetamine-amphetamine 20 1 tab PO DAILY 08/11/24 History mg tablet Allergy/AdvReac Type Severity Reaction Status Date / Time escitalopram (From Lexapro) AdvReac Mild Other - Verified 08/12/24 06:47 delayed ejaculatory response Family History Grandfather Colon cancer Surgical History H/O vasectomy History of cholecystectomy History of tonsillectomy Social History household members: spouse housing: house Smoking Status: Never smoker alcohol intake: never substance use type: does not use Review of Systems (Anesthesia) ROS Narrative System reviewed and no additional complaints, except as documented.
[2024-08-12 07:29] LABS: Bedside Glucose 211 mg/dL (74-106)
--- NOTE | 2024-08-12 07:30 | COLBX_PTH ---
PATIENT: BEV MCLEOD LOC: EN U#:[id number] AGE/SX: 49/M ROOM: RE08/12/[address]: Dr. Junior Worrell MD : 1975 BED: DIS: 08/12/2024 SPEC #: [id number] RECD: 08/12/24 11:20 STATUS: LAQUITA JACOBSON #: [id number] CRISTOPHER: 08/12/24 07:[address]: Junior Worrell DEPT: SURGICAL PATHOLOGY RECD BY: Moustapha Fishman ENTERED: 08/12/24 11:21 SP TYPE: COLON BX OTHR DR: Dr. Carlitos Holcomb MD Tissues: A - Ascending colon Procedures: Surgery Specimen Level IV HEADER OPERATION: Colonoscopy, polypectomy PRE-OP DIAGNOSIS: Screen for colon cancer TISSUE SUBMITTED: A- Ascending colon polyp MICROSCOPIC DIAGNOSIS A. Ascending colon, polyp, biopsy: * Tubular adenoma - see note. Note: The tissue is distorted with thermal artifact. MICROSCOPIC DESCRIPTION Slides are reviewed. GROSS DESCRIPTION A. Received in formalin in a container labeled with the patient's name, date of , and ascending colon polyp are multiple small fragments of short-pink mucosal tissue measuring 0.7 x 0.6 x 0.2 cm in aggregate. Submitted in toto in A1. SMB 08/12/2024 CPT:18594
--- NOTE | 2024-08-12 08:02 | OP.CCLET_ITS ---
08/12/2024 Carlitos Holcomb MD [address] [place] [address] Re : Colonoscopy procedure for Tulio Fishman Dear Dr. Holcomb This procedure was performed on Monday, August 12, 2024. My impressions and recommendations are as follows: Impressions : - One small polyp in the ascending colon, removed with a hot snare. Resected and retrieved. - The examination was otherwise normal on direct and retroflexion views. Recommendations : - Discharge patient to home. - Resume previous diet. - Continue present medications. - Await pathology results. - Repeat colonoscopy in 5 years for surveillance based on pathology results. My findings are described in the full procedure note, which is enclosed. If I can be of further assistance, please feel free to contact me at Doctor phone number(s): , Work: . Sincerely, Junior Worrell MD 08/12/2024 8:01:28 AM This report has been signed electronically.
--- NOTE | 2024-08-12 08:02 | OP.COLON_ITS ---
Patient Name: Tulio Fishman Procedure Date: 08/12/2024 7:36 AM Date of : 1975 Age: 49 Procedure: Colonoscopy Indications: Screening for colorectal malignant neoplasm Providers: Junior Worrell MD Referring MD: Carlitos Holcomb MD Medicines: Propofol per Anesthesia Patient Profile: This is a 49 year old male. Refer to note in patient chart for documentation of history and physical. Last Colonoscopy: none. The patient's first colonoscopy is today. Complications: No immediate complications. Estimated blood loss: Minimal. Procedure: Pre-Anesthesia Assessment: - Prior to the procedure, a History and Physical was performed, and patient medications and allergies were reviewed. The patient's tolerance of previous anesthesia was also reviewed. The risks and benefits of the procedure and the sedation options and risks were discussed with the patient. All questions were answered, and informed consent was obtained. Prior Anticoagulants: The patient has taken no anticoagulant or antiplatelet agents. After reviewing the risks and benefits, the patient was deemed in satisfactory condition to undergo the procedure. After I obtained informed consent, the scope was passed under direct vision. Throughout the procedure, the patient's blood pressure, pulse, and oxygen saturations were monitored continuously. The Colonoscope was introduced through the anus and advanced to the cecum, identified by appendiceal orifice and ileocecal valve. The colonoscopy was performed without difficulty. The patient tolerated the procedure well. The quality of the bowel preparation was good. The ileocecal valve, appendiceal orifice, and rectum were photographed. Scope In: 7:45:29 AM Scope Withdrawal Time 0 hours 6 minutes 25 seconds Scope Out: 7:58:29 AM Total Procedure Duration Time 0 hours 13 minutes 0 seconds Findings: A small polyp was found in the ascending colon. The polyp was removed with a hot snare. Resection and retrieval were complete. The exam was otherwise without abnormality on direct and retroflexion views. Impression: - One small polyp in the ascending colon, removed with a hot snare. Resected and retrieved. - The examination was otherwise normal on direct and retroflexion views. Recommendation: - Discharge patient to home. - Resume previous diet. - Continue present medications. - Await pathology results. - Repeat colonoscopy in 5 years for surveillance based on pathology results. Procedure Code(s): --- Professional --- 83689, Colonoscopy, flexible; with removal of tumor(s), polyp(s), or other lesion(s) by snare technique Diagnosis Code(s): --- Professional --- Z12.11, Encounter for screening for malignant neoplasm of colon D12.2, Benign neoplasm of ascending colon CPT copyright 2021 [employer]. All rights reserved. The codes documented in this report are preliminary and upon block making machine operator review may be revised to meet current compliance requirements. Junior Worrell MD 08/12/2024 8:01:28 AM This report has been signed electronically. Number of Addenda: 0 Note Initiated On: 08/12/2024 7:36 AM
--- NOTE | 2024-08-12 08:05 | PCM.POST.ANE ---
Anesthesia: Postop Eval I Current Vital Signs Temperature: 97 F Pulse Rate: 78 Blood Pressure: 107/65 Respiratory Rate: 14 Pulse Ox: 99 Oxygen Delivery Method: Room Air Assessment Airway patent: Yes Spontaneous unlabored respirations: Yes Mental status: Awake nausea: No Vomiting: No Anesthesia Complication: No Fluid Hydration Crystalloid volume administer (ml): 1 Total IV fluid infused: 1 Progress Note Anesthesia document: Postop Eval 1 completed: Yes
--- NOTE | 2024-08-12 09:39 | POSTOPAN2_ITS ---
Anesthesia Postop Eval I Sum Postop Eval Completion status Anesthesia document: Postop Eval 1 completed: Yes Anesthesia Postop Eval I Summary Anesthesia Postop Eval I Summary: Anesthesia Postop Eval I: Assessment Summary Airway patent Yes 08/12/24 08:06 CASH CONTROLLER.HBARR Spontaneous unlabored Yes 08/12/24 08:06 CASH CONTROLLER.HBARR respirations Mental status Awake 08/12/24 08:06 CASH CONTROLLER.HBARR nausea No 08/12/24 08:06 CASH CONTROLLER.HBARR Vomiting No 08/12/24 08:06 CASH CONTROLLER.HBARR Anesthesia Postop Eval I: Fluid Summary Crystalloid volume administer 1 08/12/24 08:06 CASH CONTROLLER.HBARR (ml) Colloids volume administered ( ml) Blood Product volume administered (ml) Total IV fluid infused 1 08/12/24 08:06 CASH CONTROLLER.HBARR Anesthesia Postop Eval I: Summary Notes Anesthesia Complication No 08/12/24 08:06 CASH CONTROLLER.HBARR Anesthesia Complication Comment: Post-operative progress note Anesthesia: Postop Eval II Evaluation Mental status: Awake and Calm Pain Level: 0 nausea: No Vomiting: No Complications Anesthesia Complication: No
--- NOTE | 2024-08-12 09:39 | PCM.POSTANE2 ---
Anesthesia Postop Eval I Sum Postop Eval Completion status Anesthesia document: Postop Eval 1 completed: Yes Anesthesia Postop Eval I Summary Anesthesia Postop Eval I Summary: Anesthesia Postop Eval I: Assessment Summary Airway patent Yes 08/12/24 08:06 AIRFREIGHT OPERATIONS AGENT.HBARR Spontaneous unlabored Yes 08/12/24 08:06 AIRFREIGHT OPERATIONS AGENT.HBARR respirations Mental status Awake 08/12/24 08:06 AIRFREIGHT OPERATIONS AGENT.HBARR nausea No 08/12/24 08:06 AIRFREIGHT OPERATIONS AGENT.HBARR Vomiting No 08/12/24 08:06 AIRFREIGHT OPERATIONS AGENT.HBARR Anesthesia Postop Eval I: Fluid Summary Crystalloid volume administer 1 08/12/24 08:06 AIRFREIGHT OPERATIONS AGENT.HBARR (ml) Colloids volume administered ( ml) Blood Product volume administered (ml) Total IV fluid infused 1 08/12/24 08:06 AIRFREIGHT OPERATIONS AGENT.HBARR Anesthesia Postop Eval I: Summary Notes Anesthesia Complication No 08/12/24 08:06 AIRFREIGHT OPERATIONS AGENT.HBARR Anesthesia Complication Comment: Post-operative progress note Anesthesia: Postop Eval II Evaluation Mental status: Awake and Calm Pain Level: 0 nausea: No Vomiting: No Complications Anesthesia Complication: No
== END 2024-08-12 08:39 | disposition home or self-care (01) ==
LOC: EN 06:25 → AC 06:27
PROVIDERS: PCP Family Medicine; Referring Provider Family Medicine; Visit Provider Surgery
PROC: 0DJD8ZZ Inspection of Lower Intestinal Tract, Via Natural or Artificial Opening Endoscopic (ICD-10-PCS; CPT 45378; principal; 2024-08-12 07:25)
DX: Z12.11 Encounter for screening for malignant neoplasm of colon (principal); D12.2 Benign neoplasm of ascending colon; R19.7 Diarrhea, unspecified; G47.33 Obstructive sleep apnea (adult) (pediatric); Z90.49 Acquired absence of other specified parts of digestive tract; Z80.0 Family history of malignant neoplasm of digestive organs
CPT/HCPCS: 45385; 82962; 88305; A4216